=== PATIENT | male | born 1975 | race Two or more races ===

== ENCOUNTER 2022-10-23 20:36 | Emergency (ER) | payer SELFPAY ==
[2022-10-23 20:45] VITALS: BP 145/80; PULSE 82; RESP 17; TEMP 37.4; O2SAT 99; BMI 25.5
--- NOTE | 2022-10-23 20:53 | ED.NECK ---
HPI - Neck Pain/Injury General Time Seen by Provider: 20:53 Date Seen: 10/23/22 Chief Complaint: Neuro Symptoms/Altered Deficit Stated Complaint: Pain in neck and numbness in R side of face Time Seen by Provider: 10/23/22 20:53 Source: patient and RN notes reviewed Mode of arrival: ambulatory Limitations: no limitations History of Present Illness HPI Narrative: Patient is a very pleasant 47-year-old male previously healthy who comes to the emergency room with complaints of right neck pain as well as facial weakness on the right. Patient notes that 4 days he had the onset of upper trapezial pain that then radiated into his right posterior neck about 2 days ago. This morning he awoke and noticed that he was hard for him to close his right eye. He went about his day and somebody told him that he was not smiling normally. He denies visual changes and denies any eye pain. He has no numbness or tingling of his face. He has not experienced any recent trauma or falls. 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 He does not recall any tick bites. He has no difficulty with hearing and denies alteration of his taste. Denies seeing any lesions or history of shingles. Related Data Allergies Allergy/AdvReac Type Severity Reaction Status Date / Time No Known Drug Allergies Allergy Verified 10/23/22 20:45 Review of Systems Status of ROS: Reports: 10 or more systems reviewed and unremarkable except as noted in History and below Const: Denies: fever, chills or fatigue Eyes: Denies: change in vision or blurry vision ENMT: Reports: neck pain (Right posterior); Denies: throat swelling, difficulty swallowing or hoarseness Cardio: Denies: chest pain, swelling of feet/ankles or shortness of breath with exertion Resp: Denies: shortness of breath or cough GI: Denies: abdominal pain, nausea, vomiting or difficulty swallowing Musculo: Reports: neck pain (Right posterior); Denies: muscle weakness Integ/Breast: Reports: skin tenderness (Right posterior neck); Denies: sores Neuro: Denies: headache, numbness in extremities, weakness in extremities or dizziness Endo: Denies: fatigue Allergy/Immuno: Denies: throat swelling Exam Narrative: Exam Narrative: Patient is alert and oriented. GCS of 15 with appropriate speech content and pronunciation. No slurred speech. EOM is full and pupils are equal round and reactive. Eyelids fully close but there is weakness on the right eyelid. Eyebrow raise is present on the right but definitely weaker. Smile is noted that the right side is week but still present. Tongue deviates to the right. Palate rises symmetrically. Cranial nerve 11 symmetrical with with rotation of the neck equal bilaterally. Patient has tenderness noted over the posterior musculature paraspinal on the right. There are no lesions noting no erythema or swelling. TMs bilaterally without erythema. Right ear canal and ear without erythema or lesions. Upper extremity strength and motor intact. Symmetrical sensation on forehead face chin and arms. Ambulating without difficulty. Const: Vital Signs, click to edit/add: Vital Signs - 24 hr 10/23/22 20:45 10/23/22 22:16 10/23/22 22:26 Temperature 99.4 F Pulse Rate 79 Pulse Rate [Pulse Oximeter] 82 Respiratory Rate 17 17 Blood Pressure Blood Pressure [Ri ght Upper Arm] 145/80 H 131/96 H Pulse Oximetry 99 98 96 Oxygen Delivery Me thod Room Air 10/23/22 23:22 Temperature 95 F L Pulse Rate 75 Pulse Rate [Pulse Oximeter] Respiratory Rate 16 Blood Pressure 126/96 H Blood Pressure [Ri ght Upper Arm] Pulse Oximetry Oxygen Delivery Me thod Documenting provider has reviewed patient's vital signs: yes Course Course Hospital Course: At this time patient is presenting with symptoms suggestive of Mcduffie's palsy but I do wonder about the neck pain as well as I was able to speak with [facility]. This time will proceed with a CTA of the head and neck as well as check a Lyme titer. Reevaluation(s) Reevaluation #1: Lyme titer will be a send out. Patient's head and neck CTA both within normal limits. Vital Signs Vital signs: Initial Vital Signs Temperature 99.4 F 10/23/22 20:45 Temperature Source Temporal Artery Scan 10/23/22 20:45 Pulse Rate 82 10/23/22 20:45 Respiratory Rate 17 10/23/22 20:45 Blood Pressure 145/80 H 10/23/22 20:45 Blood Pressure Mean 101 10/23/22 20:45 Pulse Oximetry 99 10/23/22 20:45 Oxygen Delivery Method Room Air 10/23/22 20:45 Vital Signs Temperature 99.4 F 10/23/22 20:45 Pulse Rate 82 10/23/22 20:45 Respiratory Rate 17 10/23/22 20:45 Blood Pressure 145/80 H 10/23/22 20:45 Pulse Oximetry 99 10/23/22 20:45 Oxygen Delivery Method Room Air 10/23/22 20:45 Temperature 95 F L 10/23/22 23:22 Pulse Rate 75 10/23/22 23:22 Respiratory Rate 16 10/23/22 23:22 Blood Pressure 126/96 H 10/23/22 23:22 Pulse Oximetry 96 10/23/22 22:26 Oxygen Delivery Method Room Air 10/23/22 20:45 MDM - Neck Pain/Injury MDM Narrative Medical decision making narrative: 1. Facial nerve palsy-at this time patient has symptoms of a Mcduffie's palsy but some atypical features which were discussed with Neurology. A CTA of the head and neck was within normal limits with no evidence of dissection. Patient was given initial dose of prednisone 60 mg and Valtrex 1 g here in the emergency room. Unfortunately patient does not have insurance and therefore he has been referred to [facility]. I was able to fill out of alter for both prednisone 30 mg p.o. b.i.d. x7 days and Valtrex 1 g p.o. t.i.d. x7 days to be filled at [facility] in [place] tomorrow. Patient was also given referral to [facility]. They will be contacting him in the next 48 hours for an appointment. Neurology did suggest outpatient MRI for again some atypical features including some prominent bilateral lymph nodes anterior cervical, as well as persisting neck pain. However, Neurology felt that this was likely Mcduffie's palsy. 2. Disposition-home at this time. Did do suggest purchasing tonight artificial tears to be used liberally during the day and prior to bedtime. Patient may also want to tape his eyelid shut with some paper tape while sleeping. Recommend returning to the emergency room for worsening symptoms, changing symptoms and as needed. Medical Records Attestation: I reviewed the patient's medical records. Imaging Data Head and neck angio: Attestation: I have reviewed the pertinent imaging results. Radiologist's impression: CTA head: Unremarkable. No sign of occlusion or significant aneurysm. CTA neck: Unremarkable. No sign of dissection or significant stenosis. ECG Data Attestation: I personally reviewed and interpreted this ECG as follows: ECG interpretation date: 10/23/22 Interpretation: EKG shows sinus rhythm at a rate of 73. I do not note any acute ST or T-wave changes. NH interval normal at 156 milliseconds. Discharge Plan Discharge Clinical Impression: Idiopathic acute facial nerve palsy Patient Disposition: Home, Self-Care Condition: Unchanged Additional Instructions: 1. You will need to be on 3 medications. First medication is prednisone which we will be using as an anti-inflammatory. Your 1st dose was given in the emergency room and your prescription to continue to take it twice a day for 7 days is included in your discharge packet. The 2nd medication is Valtrex which is an antiviral medicine. Her 1st dose was given in the emergency room and your prescription to continue to take it 3 times a day for 7 days is included in your discharge packet. Both medications should be picked up at [facility] in [place]. The voucher is included. The 3rd medication that you will be using his [id number] and is called artificial tears. You will need to make sure that you put drops in your eyes throughout the day and before bed at night to keep it well lubricated. You may want to also tape your eye lid shut at night. 2. The neurologist has suggested an outpatient MRI. Follow-up with [facility] which is a community clinic here in [place]. They will be calling you. Return to the emergency room for worsening or changing symptoms. Follow Up/Referrals: Provider,Not a Local [Primary Care Provider] - Stand Alone Forms: [employer] Info Instructions
--- NOTE | 2022-10-23 21:27 | CRLHL7_ITS ---
For Patients: As a result of the Century Cures Act, medical imaging exams and procedure reports are released immediately into your electronic medical record. You may view this report before your referring provider. If you have questions, please contact your health care provider. DATE: 10/23/2022 CLINICAL HISTORY: Patient with focal neurological deficits. TECHNIQUE: Standard helical CT image acquisition through the intracranial circulation following intravenous administration of contrast material with bolus tracking. 2D and 3D MIP images for post-processing were performed and interpreted on an independent workstation and 3D images were permanently archived. COMPARISON: CT same day. FINDINGS: There is no cerebral aneurysm or large vessel occlusion. The right internal carotid artery is normal. The right middle cerebral artery and its branches are normal. The right anterior cerebral artery and its branches are normal. The left internal carotid artery is normal. The left middle cerebral artery and its branches are normal. The left anterior cerebral artery and its branches are normal. The anterior communicating artery is well visualized and appears normal. The right vertebral artery and PICA are normal. The left vertebral artery and PICA are normal. The left vertebral artery is dominant. The basilar artery is patent and appears normal. The right posterior cerebral artery is normal. The left posterior cerebral artery is normal. The visualized venous structures are patent. IMPRESSION: Normal CT angiogram of the head without intracranial aneurysm or other neurovascular abnormality. Please note that all CT scans at this facility use dose modulation, iterative reconstruction, and/or weight-based dosing when appropriate to reduce radiation dose to as low as reasonably achievable. Dictated by Tabitha Salazar MD @ 10/24/2022 8:23:38 AM (Electronically Signed)
[2022-10-23 22:16] VITALS: BP 131/96; RESP 17; O2SAT 98
[2022-10-23 22:26] VITALS: PULSE 79; O2SAT 96
[2022-10-23 23:22] VITALS: BP 126/96; PULSE 75; RESP 16; TEMP 35
[2022-10-24 00:27] VITALS: BP 126/93; PULSE 77; RESP 16
== END 2022-10-24 00:27 | disposition home or self-care (01) ==
PROVIDERS: Emergency Provider Family Medicine
DX: G90.09 Other idiopathic peripheral autonomic neuropathy (principal)
CPT/HCPCS: 36415; 70496; 70498; 86618; 93005; 99284; 99285; Q9967